=== PATIENT | female | born 1960 | race Caucasian/White ===

== ENCOUNTER → 2018-09-13 | Outpatient (CLI) | payer OTHER, MEDICARE ==
[~2018-09-13] MED LIST: ALBU2.5V5 NEB; ASPI-630 PO; ATOR40TA59 PO; BUPR300T3 PO; CARV6.2511 PO; CLOP75TA PO; DOXE10CA PO; LOSA-73 PO; MOME17SP NS; OXYC-325 PO; RANI300C PO; VENTOLIN HFA18 GM INH
--- NOTE | 2018-09-13 13:16 | RAD ---
Lumbar spine, 3 views, 09/13/2018: HISTORY: Torn discs, disability determination The lumbar vertebral heights are well-maintained. There are mild scattered marginal spurs. There is minimal disc space narrowing at several levels. There are moderate hypertrophic degenerative changes involving the facet joints in the lower lumbar spine. No fracture or subluxation is evident. Aortic calcific plaquing is present. IMPRESSION: 1. Mild to moderate scattered degenerative changes. 2. No acute bony abnormality is detected. Electronically signed by: Edi Dumont MD (09/13/2018 1:12 PM) [facility]
== END | disposition home or self-care (01) ==
LOC: RAD 09:47 → MERGE 09:47
PROVIDERS: ATTEND Family Medicine
DX: M47.896 Other spondylosis, lumbar region (principal); M48.061 Spinal stenosis, lumbar region without neurogenic claudication
CPT/HCPCS: 72100

== ENCOUNTER 2018-10-17 08:06 | Day surgery (SDC) | payer MEDICARE ==
[~2018-10-17] VITALS: Ht 162.6 cm; Wt 77.6 kg
[~2018-10-17 08:06] MED LIST changes: +BACITRACIN 50,000 UNIT in IV NORMAL SALINE 500ML BAG 500 ML IRR ONE; -CLOP75TA PO; +HYDROmorphone 2 MG/ML VIAL IV PRN; +IV RINGERS,LACTATED 1000ML 1,000 ML IV SCH; +LIDOCAINE 1% PF 2 ML VIAL. ID PRN; +MORPHINE SULFATE 2 MG/ML VIAL. IV PRN; +ONDANSETRON PF 4 MG/2 ML VIAL. IV PRN; -OXYC-325 PO; +PROCHLORPERAZINE 10 MG/2 ML VIAL. IV PRN; +fentaNYL PF VIAL 100 MCG/2 ML VIAL IV PRN
[2018-10-17] MEDS ORDERED: ONDANSETRON PF 4 MG/2 ML VIAL. ONE (08:32)
[2018-10-17] MEDS ORDERED: LIDOCAINE 2% PF Vial for OR 5 ML VIAL. ONE (08:32)
[2018-10-17] MEDS ORDERED: PROPOFOL 20 ML IV ONE (08:32)
[2018-10-17] MEDS ORDERED: DEXAMETHASONE SOD PHOS 20 MG/5 ML VIAL. ONE (08:32)
[2018-10-17] MEDS ORDERED: MIDAZOLAM HCL/PF 2 MG/2 ML VIAL. ONE (08:33)
[2018-10-17] MEDS ORDERED: CLOP75TA PO (08:33)
[2018-10-17] MEDS ORDERED: fentaNYL PF VIAL 100 MCG/2 ML VIAL ONE (08:33)
[2018-10-17] MEDS ORDERED: BACITRACIN 50,000 UNIT VIAL. IRR ONE (09:30)
[2018-10-17] MEDS ORDERED: BUPIVAC MPF-EPI 0.5%-1:200000 30 ML VIAL. ONE (09:30)
[2018-10-17] MEDS ORDERED: 0.9 % SODIUM CHLORIDE 20 ML VIAL. IJ ONE (09:31)
[2018-10-17] MEDS ORDERED: HYDROmorphone 2 MG/ML VIAL ONE (10:15)
[2018-10-17] MEDS ORDERED: KETOROLAC 30 MG/ML INJ FOR OR. INJ ONE (11:41)
[2018-10-17] MEDS ORDERED: METOPROLOL TARTRATE 5 MG/5 ML VIAL. IVP ONE (11:41)
[2018-10-17] MEDS ORDERED: SEVOFLURANE > 120 MINUTES. IH ONE (11:41)
--- NOTE | 2018-10-17 12:11 | DISCH ---
DISCHARGE INSTRUCTIONS Condition on Discharge Condition on Discharge: Stable Activity After Discharge Activity Instructions for Disc: Other, see below (no lifting over 20 lbs X 4 weeks) Driving Instructions after Dis: Other, see below (no driving while taking pain meds) Diet after Discharge Diet after Discharge: Regular Wound Incision Care Wound/Incision Care: Other, see below (keeps dressings clean and dry X 72 hours , may then remove and shower) Follow-Up Follow up with: Dr Carrillo in 2 weeks in the office, call for appt [phone] SHAHLA CARRILLO MD Oct 17, 2018 12:11
--- NOTE | 2018-10-17 12:17 | PDOC4 ---
Operative Note Operative Note Operative Note: Preoperative Diagnosis: Bilateral inguinal hernias Postoperative Diagnosis: Same Procedure: Repair of bilateral inguinal hernias with mesh Surgeon: Bryon Anesthesia: Gen. EBL: 20 mL Specimen: None Drains: None Complications: None Indication: The patient is a 57-year-old female who is referred due to primarily right groin pain. Her evaluation included a prior CAT scan which identified fat-containing bilateral inguinal hernias with the right side larger than the left. She is interested in operative repair of both. The details and risks of surgery were discussed. The risks include bleeding, infection, recurrence, pain, anesthetic risk, potential need for additional surgery or procedure. She is also aware of increased surgical risks associated with smoking and the increased chance of recurrence. She is aware and would like to proceed. Description: The patient was taken to the operating room and placed supine on the operating table. Gen. anesthesia was performed. The bilateral groins were prepped with ChloraPrep and draped in a standard surgical manner. Leaving on the right side an incision was made in the skin lines of the right groin with a scalpel. Cautery dissection was carried down to the external oblique aponeurosis. The round ligament was ligated with 2-0 Vicryl and divided. The patient had a small direct hernia defect present with protrusion of fatty tissue. The attenuated transversalis fascia was opened and the fat was reduced. The defect was filled with a large sized Phasix mesh plug. The plug was sutured around its periphery with 2-0 Vicryl. The entire inguinal floor was then reinforced with a flat Prolene mesh patch. The patch was tailored to provide full coverage of the inguinal floor and it was sutured into position with 2-0 Vicryl interrupted stitches. The external oblique was closed over the mesh with 2-0 Vicryl. The subcutaneous tissue was closed with 3-0 Vicryl. The skin was closed with 4-0 Monocryl. The incision was covered with a sterile towel and we directed our attention to the left groin. An incision was made in the skin lines with a scalpel. Cautery dissection was carried down through the external oblique aponeurosis. The round ligament and associated structures were ligated with 2-0 Vicryl and divided. The patient had a fairly small indirect hernia sac. This was mobilized down to its base and reduced. The defect was then filled with a small Phasix mesh plug. The plug was sutured around its periphery with 2-0 Vicryl. The entire inguinal floor was reinforced with a Prolene flat mesh patch similar to the opposite side. The external oblique was closed over the mesh with 2-0 Vicryl. The subcutaneous tissues closed with 3-0 Vicryl. The skin was closed with 4-0 Monocryl. Both incisions were infiltrated with half percent Marcaine with epinephrine. Steri-Strips and dressings were applied. The patient tolerated the procedure well and was sent to the recovery room in stable condition. At the end of the case all counts were correct. SHAHLA CARRILLO MD Oct 17, 2018 12:17
[2018-10-17] MEDS: fentaNYL PF VIAL 100 MCG/2 ML VIAL IV PRN ×4 (12:36→14:10)
[2018-10-17] MEDS ORDERED: IPRATRPIUM/ALBUTEROL 0.5/2.5MG 3 ML NEBU. NEB ONE (13:15)
[2018-10-17] MEDS ORDERED: ALBUTEROL SULFATE 2.5 MG/3 ML NEBU. ONE (13:18)
[2018-10-17] MEDS ORDERED: oxyCODONE/APAP 5/325 1 TAB TABLET ONE (13:56)
[2018-10-17] MEDS ORDERED: oxyCODONE/APAP 5/325 1 TAB TABLET PO ONE (14:15)
[2018-10-17] MEDS ORDERED: OXYC-325 PO (14:35)
[2018-10-17 14:50] VITALS: BP 93/54
== END 2018-10-17 14:57 | disposition home or self-care (01) ==
LOC: SURG 08:06
PROVIDERS: ATTEND Surgery
DX: K40.20 Bilateral inguinal hernia, without obstruction or gangrene, not specified as recurrent (principal); I10 Essential (primary) hypertension; J45.909 Unspecified asthma, uncomplicated; E78.00 Pure hypercholesterolemia, unspecified; Z79.82 Long term (current) use of aspirin; Z79.899 Other long term (current) drug therapy; Z95.5 Presence of coronary angioplasty implant and graft; Z98.890 Other specified postprocedural states; Z82.49 Family history of ischemic heart disease and other diseases of the circulatory system; Z82.3 Family history of stroke; F17.210 Nicotine dependence, cigarettes, uncomplicated; Z72.89 Other problems related to lifestyle
CPT/HCPCS: 49505; A7015; C1781; J0696; J1100; J1170; J1885; J2001; J2250; J2405; J2704; J3010; J3490; J7613; J7040